=== PATIENT | female | born 1960 | race Caucasian/White ===

== ENCOUNTER 2020-04-02 09:22 | Day surgery (SDC) | payer BC, OTHER ==
[~2020-04-02 09:22] MED LIST: Acetaminophen 325 MG Tab PO SCH; EPINEPHrine 1 MG/ML SDV ONE; Lactated Ringers 1,000 ML IV SCH; Lidocaine 1%/Sod Bicarbonate in NS 8.4% 1 ML Syringe IDERM PRN; Morphine 8 MG, EPINEPHrine 0.3 MG, Cefuroxime 750 MG, Ketorolac 30 MG, Sodium Chloride ... PRN; Pregabalin 25 MG Cap PO SCH; Ropivacaine 0.5% 5 MG/ML 30 ML SDV ONE; Scopolamine 1.5 MG Transdermal Patch TRDERM PRN; Sodium Chloride 0.9% 10 ML Syringe FLUSH PRN; oxyCODONE ER 10 MG TAB.ER PO SCH
[2020-04-02] MEDS ORDERED: Propofol 200 MG/20 ML SDV ONE (10:05)
[2020-04-02] MEDS ORDERED: Midazolam 1 MG/ML 2 ML SDV ONE (10:05)
[2020-04-02] MEDS ORDERED: fentaNYL 100 MCG/2 ML SDV ONE (10:05)
[2020-04-02] MEDS ORDERED: ceFAZolin 1 GM Vial ONE ×3 (10:08→15:00)
[2020-04-02] MEDS ORDERED: Vancomycin 1 GM SDV ONE (10:10)
[2020-04-02] MEDS ORDERED: Bupivacaine 0.25% 10 ML SDV ONE (10:11)
--- NOTE | 2020-04-02 10:26 | PCM.PREANE ---
Preanesthetic Assessment - Procedure Proposed Procedure: left total knee - Anesthesia/Transfusion/Family Hx Type of Anesthesia Reaction: Excessive Nausea/Vomiting Family History of Anesthesia Reaction: No Transfusion History: No Prior Transfusion(s) - Review of Systems General: No Symptoms Pulmonary: No Symptoms Cardiovascular: No Symptoms Gastrointestinal: No Symptoms Neurological: No Symptoms Other: Reports: Diabetes (pre), Thyroid Problems, Sinus Problem - Physical Assessment NPO Status Date: 04/01/20 NPO Status Time: 23:00 Vital Signs: Last Vital Signs Temp 97.3 F 04/02/20 09:15 Pulse 62 04/02/20 09:15 Resp 16 04/02/20 09:15 BP 158/76 H 04/02/20 09:15 Pulse Ox 96 04/02/20 09:15 Height: 5 ft 5 in Weight: 92.533 kg ASA Class: 2 Mental Status: Alert & Oriented x3 Airway Class: Mallampati = 1 Dentition: Reports: Normal Dentition Thyro-Mental Finger Breadths: 3 Mouth Opening Finger Breadths: 3 ROM/Head Extension: Full Lungs: Clear to Auscultation, Normal Respiratory Effort Cardiovascular: Regular Rate, Regular Rhythm - Lab Values: Laboratory Last Values PT 10.9 SECONDS (9.7-11.7) 04/02/20 09:40 INR 1.02 04/02/20 09:40 APTT 27 SECONDS (22-31) 04/02/20 09:40 POC Glucose 92 mg/dL (70-105) 04/02/20 09:39 SARS-CoV-2 (PCR) Not detected (NOT DETECT) 03/29/20 10:30 MRSA (PCR) Negative 03/20/20 10:29 - Allergies Allergies/Adverse Reactions: Allergies Allergy/AdvReac Type Severity Reaction Status Date / Time No Known Allergies Allergy Verified 04/02/20 09:36 - Blood Blood Available: No - Acknowledgements Anesthesia Type Planned: Spinal Pt an Appropriate Candidate for the Planned Anesthesia: Yes Alternatives and Risks of Anesthesia Discussed w Pt/Guardian: Yes Pt/Guardian Understands and Agrees with Anesthesia Plan: Yes PreAnesthesia Questionnaire Cardiovascular History: Reports: High Cholesterol Respiratory History: Reports: None Gastrointestinal History: Reports: None Musculoskeletal History: Reports: Arthritis Psychiatric History: Reports: None Endocrine/Metabolic History: Reports: Hypothyroidism, Other (See Below) Other Endocrine/Metabolic History: abnormal BG, now on metformin - Past Surgical History GI Surgical History: Reports: Colonoscopy Female Surgical History: Reports: Breast Implant, Section, Hysterectomy - SUBSTANCE USE Smoking Status *Q: Never Smoker Tobacco Use Within Last Twelve Months: No Second Hand Smoke Exposure: No Days Per Week of Alcohol Use: 1 (rare) Recreational Drug Use History: No - HOME MEDS Home Medications: Home Meds Biotin 1 tab PO DAILY 03/30/20 [History] Cartilage/Collagen/Bor/Hyalur [Joint Health Tablet] 1 tab PO DAILY 03/30/20 [History] Cholecalciferol (Vitamin D3) [Vitamin D3] 125 mcg PO DAILY 03/30/20 [History] Fish Oil/Borage/Flax/Om3,6,9 1 [[place] 3-6-9 1,200 mg Softgel] 1 cap PO DAILY 03/30/20 [History] L.acidoph,Paracasei, B.lactis [Probiotic] 1 cap PO DAILY 03/30/20 [History] Levothyroxine 125 mcg PO DAILY 03/30/20 [History] Lysine 500 mg PO DAILY 03/30/20 [History] metFORMIN [Glucophage XR] 500 mg PO DAILY 03/30/20 [History] Acetaminophen/oxyCODONE [Percocet 325-5 MG] 1 - 2 each PO Q4H PRN #60 tab 04/02/20 [Rx] Aspirin [Aspirin EC] 325 mg PO BID #84 04/02/20 [Rx] Cyclobenzaprine [Flexeril] 10 mg PO BID PRN #20 tab 04/02/20 [Rx] - CURRENT (IN HOUSE) MEDS Current Meds: Current Medications Acetaminophen (Tylenol) 975 mg PO ONETIME MALISSA Stop: 04/02/20 16:00 Last Admin: 04/02/20 09:32 Dose: 975 mg Documented by: Morphine Sulfate 8 mg/Epinephrine HCl 0.3 mg/Cefuroxime Sodium 750 mg/Ketorolac Tromethamine 30 mg/Sodium Chloride 7.9 ml 0 mg .XX ASDIRECTED PRN PRN Reason: Pain Stop: 04/02/20 13:00 Lactated Ringer's (Ringers, Lactated) 1,000 mls @ 125 mls/hr IV ASDIRECTED MALISSA Stop: 04/02/20 23:00 Last Admin: 04/02/20 09:35 Dose: 125 mls/hr Documented by: Lidocaine/Sodium Bicarbonate (Buffered Lidocaine 1% In Ns 8.4%) 0.25 ml IDERM ONETIME PRN PRN Reason: Prior to IV Start Stop: 04/02/20 18:00 Last Admin: 04/02/20 09:34 Dose: 0.25 ml Documented by: Oxycodone HCl (Oxycontin) 10 mg PO ONETIME MALISSA Stop: 04/02/20 16:00 Last Admin: 04/02/20 09:32 Dose: 10 mg Documented by: Pregabalin (Lyrica) 50 mg PO ONETIME MALISSA Stop: 04/02/20 16:00 Last Admin: 04/02/20 09:32 Dose: 50 mg Documented by: Scopolamine (Transderm-Scop) 1.5 mg TRDERM ONETIME PRN PRN Reason: PONV Stop: 04/02/20 16:00 Last Admin: 04/02/20 09:33 Dose: 1.5 mg Documented by: Sodium Chloride (Saline Flush) 10 ml FLUSH ASDIRECTED PRN PRN Reason: Keep Vein Open Stop: 04/02/20 18:00 Discontinued Medications Bupivacaine HCl (Sensorcaine-Mpf 0.25%) Confirm Administered Dose 30 ml .ROUTE .STK-MED ONE Stop: 04/02/20 10:12 Cefazolin Sodium (Ancef) Confirm Administered Dose 2 gm .ROUTE .STK-MED ONE Stop: 04/02/20 10:09 Cefazolin Sodium (Ancef) Confirm Administered Dose 1 gm .ROUTE .STK-MED ONE Stop: 04/02/20 10:12 Epinephrine HCl (Adrenalin) Confirm Administered Dose 1 mg .ROUTE .STK-MED ONE Stop: 04/02/20 07:02 Fentanyl (Sublimaze) Confirm Administered Dose 100 mcg .ROUTE .STK-MED ONE Stop: 04/02/20 10:06 Midazolam HCl (Versed 1 Mg/Ml) Confirm Administered Dose 2 mg .ROUTE .STK-MED ONE Stop: 04/02/20 10:06 Propofol (Diprivan 20 Ml) Confirm Administered Dose 400 mg .ROUTE .STK-MED ONE Stop: 04/02/20 10:06 Ropivacaine (Naropin 0.5%) Confirm Administered Dose 30 ml .ROUTE .STK-MED ONE Stop: 04/02/20 07:02 Tranexamic Acid (Cyklokapron) Confirm Administered Dose 1,000 mg .ROUTE .STK-MED ONE Stop: 04/02/20 10:11 Vancomycin HCl (Vancomycin) Confirm Administered Dose 1 gm .ROUTE .STK-MED ONE Stop: 04/02/20 10:11
[2020-04-02] MEDS ORDERED: Lactated Ringers 1,000 ML ONE (11:11)
[2020-04-02] MEDS ORDERED: Ondansetron 4 MG/2 ML SDV IVPUSH PRN (11:30)
[2020-04-02] MEDS ORDERED: HYDROmorphone 0.5 MG/0.5 ML Syringe IVPUSH PRN (11:30)
[2020-04-02] MEDS ORDERED: fentaNYL 100 MCG/2 ML SDV IVPUSH PRN (11:30)
[2020-04-02] MEDS ORDERED: ePHEDrine Sulfate/0.9% NaCl/Pf 25 MG/5 ML SYRINGE IV ONE (12:09)
[2020-04-02] MEDS ORDERED: Ondansetron 4 MG/2 ML SDV ONE (12:17)
[2020-04-02] MEDS ORDERED: Ketorolac 30 MG/ML SDV ONE (12:24)
--- NOTE | 2020-04-02 12:43 | PCM.POSTAN ---
POST ANESTHESIA ASSESSMENT - MENTAL STATUS Mental Status: Alert, Oriented - VITAL SIGNS Vital Signs: Last Vital Signs Temp 97.3 F 04/02/20 09:15 Pulse 62 04/02/20 09:15 Resp 16 04/02/20 09:15 BP 158/76 H 04/02/20 09:15 Pulse Ox 96 04/02/20 09:15 1235 103/55 96% 72 14 97.6f - RESPIRATORY Respiratory Status: Respiratory Rate WNL, Airway Patent, O2 Saturation Stable, Supplemental Oxygen - CARDIOVASCULAR CV Status: Pulse Rate WNL, Blood Pressure Stable - GASTROINTESTINAL GI Status: No Symptoms - PAIN Pain Score: 0 - POST OP HYDRATION Hydration Status: Adequate & Stable
--- NOTE | 2020-04-02 13:07 | PCM.SN.2 ---
- Free Text/Narrative Note: Left selective femoral nerve block at the adductor canal for post-procedure pain control under US guidance requested by Dr. Bliss. Date: 04/02/20 Time Out: 1249 Start: 1249 End: 1255 Chart reviewed. Consent signed. Questions answered. Appropriate monitors applied. Time out performed. Left mid-shaft femur identified with ultrasound, scanning medially of femur, the femoral artery in the adductor canal visualized, and the femoral nerve located laterally to the artery. The skin was prepped lateral to the ultrasound probe with chlorahexadine times two. The 21ga 4 insulated block needle was inserted under direct ultrasound guidance into the adductor canal. 25mL of 0.5% ropivacaine with 1:200,000 epinephrine was injected circumferentially around the nerve with intermittent negative aspiration noted. Patient tolerated the procedure well. Sterile technique noted along with sterile gloves, mask, and sterile probe cover. See picture on progress note and vital signs on nurses notes. Block completed in PACU. States felt heart beat in chest after. Heart rate 45. Subsided after a few minutes. BP 175/70. States feels better. - Laurel Dhillon CRNA
--- NOTE | 2020-04-02 16:07 | PCM48HPAN ---
Post Anesthesia Note - EVALUATION WITHIN 48HRS OF ANESTHETIC Vital Signs in Normal Range: Yes Patient Participated in Evaluation: Yes Respiratory Function Stable: Yes Airway Patent: Yes Cardiovascular Function Stable: Yes Hydration Status Stable: Yes Pain Control Satisfactory: Yes Nausea and Vomiting Control Satisfactory: Yes Mental Status Recovered: Yes Vital Signs: Last Vital Signs Temp 36.3 C 04/02/20 14:36 Pulse 66 04/02/20 14:36 Resp 20 04/02/20 14:36 BP 119/64 04/02/20 14:36 Pulse Ox 94 L 04/02/20 14:36
--- NOTE | 2020-04-09 15:57 | PCM.OPNOTE ---
- General Post-Op/Procedure Note Date of Surgery/Procedure: 04/02/20 Operative Procedure(s): left total knee arthroplasty Pre Op Diagnosis: left knee osteoarthrosis Post-Op Diagnosis: Same Anesthesia Technique: Local, MAC, Spinal Primary Surgeon: Bernabe Bliss Anesthesia Provider: Laurel Dhillon Vessel Specialist: Mariluz Castanon Vessel Specialist: Audelia Contreras in mLs: 50 Complications: None Condition: Good Free Text/Narrative:: 4/4 9mm 32x10
--- NOTE | 2020-04-09 16:16 | OR ---
DATE OF OPERATION: 04/02/2020 SURGEON: Bernabe Bliss MD OPERATION PERFORMED: Left total knee arthroplasty. PREOPERATIVE DIAGNOSIS: Left knee osteoarthrosis. POSTOPERATIVE DIAGNOSIS: Left knee osteoarthrosis. ANESTHESIA: Local MAC with spinal. ANESTHESIA PROVIDER: Laurel Dhillon. ASH PIT WORKER: Mariluz Castanon PA-C and Audelia Contreras. CASHIER RECEPTIONIST. ESTIMATED BLOOD LOSS: 50 mL. COMPLICATIONS: None. CONDITION: Stable. IMPLANTS: 1. [place] size 4 press-fit CR femur. 2. [place] size 4 press-fit tibial base plate. 3. [place] size 4, 9 mm CS polyethylene insert. 4. [place] size 32 x 10 mm press fit asymmetric patella. DESCRIPTION OF PROCEDURE: The patient was identified in the preop holding area. Proper site was marked and identified by the surgeon. The patient was taken back to the operating theater. After adequate anesthesia, the patient's left lower extremity had a nonsterile tourniquet applied and it was sterilely prepped and draped in the usual sterile fashion. OR time-out was performed. The patient received 2 g IV Ancef. At this time, the left lower extremity was exsanguinated. Tourniquet was insufflated to 300 mmHg. Standard medial parapatellar incision was made. Medial parapatellar arthrotomy was created. Deep fibers of the MCL were raised and anterior fat pad was resected. At this time, attention was turned to the patella. Patella measured a 24, it was resected to a 14 for a 32 x 10 mm patella. Drill holes were then drilled and found to be in adequate position. The drill was then drilled in the distal femur and the intramedullary distal femoral cutting guide was then placed. 8 mm was resected off the distal femur and was found to be an adequate resection. Sizing guide was placed. It was found to be a size 4 press-fit CR femur that was shown on the implant record at the beginning of this dictation. The drill holes were drilled for the epicondylar axis using [place] line and epicondyles as reference. At this time, the 4-in-1 cutting block was placed. An anterior posterior and anterior and posterior chamfer cuts were then completed. Attention was turned to the tibia. The posterior medial lateral retractors were placed. The extramedullary tibial guide was placed. It was placed in the old footprint of the ACL. It was aligned with the center of the ankle and 0 degrees of slope, 9 mm was then resected off the unaffected side. There was found to be an acceptable reduction. At this time, posterior osteophytes were removed along with medial and lateral meniscus. A trial implant was placed with a correct sized tibia that was mentioned at the beginning of the dictation. A [place] size 4, 9 mm CS polyethylene insert was then placed. The patient's knee was brought through range of motion. The patella was tracking centrally and was stable to varus and valgus stress. Alignment was found to be roughly at 0 degrees. The tibia was stamped and drilled in proper rotation. The universal tibial base plate was impacted in place. Next, the [place] size 4 press-fit CR femur impacted into place and the [place] size 4, 9 mm CS polyethylene insert was placed. The patient's knee was brought into full extension. The patella was then press-fit in place at this time. Tourniquet was deflated. Irricept was irrigated through the knee along with 1 L of pulse lavage irrigation with Ancef. Periarticular injection was then completed. The patient's knee was brought through a range of motion. Knee was found to be stable to varus valgus stress, the patella was tracking centrally with full range of motion. At this time, a #2 barbed suture was used for closure of the medial parapatellar arthrotomy. Topical tranexamic acid was placed. 2-0 Vicryl was used subcutaneously, Prineo was used for the skin. The patient tolerated the procedure well and was sent to the PACU in stable condition. MMODAL /[id number] MTDD
== END 2020-04-02 18:25 | disposition home or self-care (01) ==
LOC: JD.SDS 09:22
PROVIDERS: ATTEND Orthopaedic Surgery
DX: M17.12 Unilateral primary osteoarthritis, left knee (principal); E03.9 Hypothyroidism, unspecified; E78.2 Mixed hyperlipidemia; E11.9 Type 2 diabetes mellitus without complications; R94.5 Abnormal results of liver function studies; G89.18 Other acute postprocedural pain; Z01.812 Encounter for preprocedural laboratory examination; Z79.899 Other long term (current) drug therapy; Z79.890 Hormone replacement therapy; Z88.0 Allergy status to penicillin; Z98.890 Other specified postprocedural states; Z80.0 Family history of malignant neoplasm of digestive organs; Z23 Encounter for immunization; Z79.4 Long term (current) use of insulin; Z20.828 Contact with and (suspected) exposure to other viral communicable diseases
CPT/HCPCS: 27447; 36415; 73560; 82962; 85610; 85730; 87635; 87641; 97110; 97116; 97161; A9270; C1776; J0171; J0690; J0697; J1885; J2250; J2270; J2405; J2704; J2795; J3010; J3370; J3490; J7120; 01402; 64450; U0002

== ENCOUNTER 2020-05-31 06:11 | Day surgery (SDC) | payer OTHER ==
[~2020-05-31 06:11] MED LIST changes: -Acetaminophen 325 MG Tab PO SCH; -EPINEPHrine 1 MG/ML SDV ONE; -Morphine 8 MG, EPINEPHrine 0.3 MG, Cefuroxime 750 MG, Ketorolac 30 MG, Sodium Chloride ... PRN; -Pregabalin 25 MG Cap PO SCH; -Ropivacaine 0.5% 5 MG/ML 30 ML SDV ONE; -Scopolamine 1.5 MG Transdermal Patch TRDERM PRN; -oxyCODONE ER 10 MG TAB.ER PO SCH
--- NOTE | 2020-05-31 06:36 | PCM.PREANE ---
Preanesthetic Assessment - Procedure Proposed Procedure: left knee manipulation under anesthesia - Anesthesia/Transfusion/Family Hx Anesthesia History: Prior Anesthesia Reaction Type of Anesthesia Reaction: Excessive Nausea/Vomiting Family History of Anesthesia Reaction: No Transfusion History: No Prior Transfusion(s) - Review of Systems General: No Symptoms Pulmonary: No Symptoms Cardiovascular: No Symptoms Gastrointestinal: No Symptoms Neurological: No Symptoms Other: Reports: Diabetes (pre), Thyroid Problems - Physical Assessment NPO Status Date: 05/30/20 NPO Status Time: 22:00 Vital Signs: 147/81 75 97% 16 97.6 Height: 5 ft 5 in Weight: 89.5 kg ASA Class: 2 Mental Status: Alert & Oriented x3 Airway Class: Mallampati = 1 Dentition: Reports: Normal Dentition Thyro-Mental Finger Breadths: 3 Mouth Opening Finger Breadths: 3 ROM/Head Extension: Full Lungs: Clear to Auscultation, Normal Respiratory Effort Cardiovascular: Regular Rate, Regular Rhythm - Allergies Allergies/Adverse Reactions: Allergies Allergy/AdvReac Type Severity Reaction Status Date / Time Penicillins Allergy family Verified 05/30/20 14:47 allergy - Blood Blood Available: No - Acknowledgements Anesthesia Type Planned: MAC Pt an Appropriate Candidate for the Planned Anesthesia: Yes Alternatives and Risks of Anesthesia Discussed w Pt/Guardian: Yes Pt/Guardian Understands and Agrees with Anesthesia Plan: Yes PreAnesthesia Questionnaire HEENT History: Reports: None Cardiovascular History: Reports: High Cholesterol Respiratory History: Reports: None Gastrointestinal History: Reports: Diverticulosis Genitourinary History: Reports: None HOUSETRAILER SERVICER History: Reports: None Musculoskeletal History: Reports: Arthritis Neurological History: Reports: None Psychiatric History: Reports: None Endocrine/Metabolic History: Reports: Hypothyroidism, Obesity/BMI 30+, Other (See Below) Other Endocrine/Metabolic History: abnormal BG, now on metformin Hematologic History: Reports: None Immunologic History: Reports: None Oncologic (Cancer) History: Reports: None Other Dermatologic History: seborrheic keratosis - Infectious Disease History Infectious Disease History: Reports: None - Past Surgical History Head Surgeries/Procedures: Reports: None HEENT Surgical History: Reports: None Cardiovascular Surgical History: Reports: None Respiratory Surgical History: Reports: None GI Surgical History: Reports: Colonoscopy Female Surgical History: Reports: Breast Implant, Section, Hysterectomy Male Surgical History: Reports: None Endocrine Surgical History: Reports: None Neurological Surgical History: Reports: None Musculoskeletal Surgical History: Reports: Knee Replacement Oncologic Surgical History: Reports: None - SUBSTANCE USE Tobacco Use Status *Q: Never Tobacco User Tobacco Use Within Last Twelve Months: No Second Hand Smoke Exposure: No Days Per Week of Alcohol Use: 1 Number of Drinks Per Day: 1 Total Drinks Per Week: 1 Recreational Drug Use History: No - HOME MEDS Home Medications: Home Meds Biotin 1 tab PO DAILY 03/30/20 [History] Cartilage/Collagen/Bor/Hyalur [Joint Health Tablet] 1 tab PO DAILY 03/30/20 [History] Cholecalciferol (Vitamin D3) [Vitamin D3] 125 mcg PO DAILY 03/30/20 [History] Fish Oil/Borage/Flax/Om3,6,9 1 [[place] 3-6-9 1,200 mg Softgel] 1 cap PO DAILY 03/30/20 [History] L.acidoph,Paracasei, B.lactis [Probiotic] 1 cap PO DAILY 03/30/20 [History] Levothyroxine 125 mcg PO DAILY 03/30/20 [History] Lysine 500 mg PO DAILY 03/30/20 [History] metFORMIN [Glucophage XR] 500 mg PO DAILY 03/30/20 [History] Acetaminophen [Tylenol] 650 mg PO Q4H PRN 05/30/20 [History] Celecoxib 200 mg PO DAILY 05/30/20 [History] Metaxalone [Skelaxin] 800 mg PO BEDTIME 05/30/20 [History] Cyclobenzaprine [Flexeril] 10 mg PO BID PRN #20 tab 05/31/20 [Rx] oxyCODONE 5 - 10 mg PO Q4H PRN #30 tab 05/31/20 [Rx] - CURRENT (IN HOUSE) MEDS Current Meds: Current Medications Lactated Ringer's (Ringers, Lactated) 1,000 mls @ 125 mls/hr IV ASDIRECTED MALISSA Stop: 05/31/20 23:00 Lidocaine/Sodium Bicarbonate (Buffered Lidocaine 1% In Ns 8.4%) 0.25 ml IDERM ONETIME PRN PRN Reason: Prior to IV Start Stop: 05/31/20 18:00 Sodium Chloride (Saline Flush) 10 ml FLUSH ASDIRECTED PRN PRN Reason: Keep Vein Open Stop: 05/31/20 18:00
[2020-05-31] MEDS ORDERED: Lidocaine 1% 4 ML ONE (06:38)
[2020-05-31] MEDS ORDERED: Propofol 200 MG/20 ML SDV ONE (06:39)
[2020-05-31] MEDS ORDERED: Ketorolac 30 MG/ML SDV ONE (06:39)
[2020-05-31] MEDS ORDERED: Midazolam 1 MG/ML 2 ML SDV ONE (06:39)
[2020-05-31] MEDS ORDERED: Ondansetron 4 MG/2 ML SDV ONE (06:39)
[2020-05-31] MEDS ORDERED: Ketamine 500 mg/10 ML MDV ONE (06:39)
[2020-05-31] MEDS ORDERED: fentaNYL 100 MCG/2 ML SDV ONE (06:39)
--- NOTE | 2020-05-31 07:59 | PCM48HPAN ---
Post Anesthesia Note - EVALUATION WITHIN 48HRS OF ANESTHETIC Vital Signs in Normal Range: Yes Patient Participated in Evaluation: Yes Respiratory Function Stable: Yes Airway Patent: Yes Cardiovascular Function Stable: Yes Hydration Status Stable: Yes Pain Control Satisfactory: Yes (denies pain) Nausea and Vomiting Control Satisfactory: Yes Mental Status Recovered: Yes Vital Signs: Last Vital Signs Temp 97.6 F 05/31/20 06:20 Pulse 75 05/31/20 06:20 Resp 16 05/31/20 06:20 BP 147/81 H 05/31/20 06:20 Pulse Ox 97 05/31/20 06:20 0754 121/62 62 98.3 93% 16
[2020-05-31] MEDS ORDERED: Ondansetron 4 MG/2 ML SDV IVPUSH PRN (08:00)
--- NOTE | 2020-06-06 14:00 | PCM.OPNOTE ---
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
--- NOTE | 2020-06-13 16:03 | OR ---
DATE OF OPERATION: 05/31/2020 SURGEON: Bernabe Bliss MD OPERATION PERFORMED: Manipulation under anesthesia of left total knee arthroplasty. PREOPERATIVE DIAGNOSIS: Left total knee arthrofibrosis. POSTOPERATIVE DIAGNOSIS: Left total knee arthrofibrosis. ANESTHESIA: MAC. ANESTHESIA PROVIDER: Laurel Dhillon CRNA. AREA OPERATIONS MANAGER: Mariluz Castanon PA-C. ESTIMATED BLOOD LOSS: Not applicable. COMPLICATIONS: None. CONDITION: Stable. DESCRIPTION OF PROCEDURE: The patient was identified in the preoperative holding area. Proper site was marked and identified by the surgeon. The patient was taken back to the operative theater, where after adequate time-out pre manipulation motion was measured. The patient had full extension and roughly 85 degrees of flexion. At this time, we did a manipulation under anesthesia, and the patient had complete advent of motion compared to the non-operative side. A picture was taken showing the complete motion compared to the non- operative side. The patient was sent to PACU in stable condition. We will begin physical therapy. MMODAL /[id number]
== END 2020-05-31 08:35 | disposition home or self-care (01) ==
LOC: JD.SDS 06:11
PROVIDERS: ATTEND Orthopaedic Surgery
DX: T84.82XA Fibrosis due to internal orthopedic prosthetic devices, implants and grafts, initial encounter (principal); E11.9 Type 2 diabetes mellitus without complications; E78.2 Mixed hyperlipidemia; E03.9 Hypothyroidism, unspecified; E66.9 Obesity, unspecified; Z98.890 Other specified postprocedural states; Z96.652 Presence of left artificial knee joint; Z79.890 Hormone replacement therapy; Z68.32 Body mass index [BMI] 32.0-32.9, adult; Z88.0 Allergy status to penicillin; Z79.82 Long term (current) use of aspirin; Z79.899 Other long term (current) drug therapy; Z79.84 Long term (current) use of oral hypoglycemic drugs
CPT/HCPCS: 27570; J1885; J2001; J2250; J2405; J2704; J3010; J7120; 01390

== ENCOUNTER 2024-10-24 06:30 | Day surgery (SDC) | payer MEDICARE, OTHER ==
[2024-10-24] MEDS: Pregabalin 25 MG Cap PO ONE (07:00)
[2024-10-24] MEDS: oxyCODONE ER 10 MG TAB.ER PO ONE (07:00)
[2024-10-24] MEDS: Acetaminophen 325 MG Tab PO ONE (07:00)
[2024-10-24] MEDS ORDERED: propofoL 500 MG/50 ML 50 ML ONE ×2 (07:27→08:32)
[2024-10-24] MEDS ORDERED: Midazolam 1 MG/ML 2 ML SDV ONE (07:47)
[2024-10-24] MEDS ORDERED: HYDROmorphone 0.5 MG/0.5 ML Syringe IVPUSH ONE (08:15)
[2024-10-24] MEDS ORDERED: fentaNYL 100 MCG/2 ML SDV IVPUSH PRN (08:15)
[2024-10-24] MEDS ORDERED: Ondansetron 4 MG/2 ML SDV IVPUSH ONE (08:15)
[2024-10-24] MEDS ORDERED: Phenylephrine 1% 10 MG/ML SDV ONE (08:18)
[2024-10-24] MEDS ORDERED: Ondansetron 4 MG/2 ML SDV ONE ×2 (08:32→13:44)
[2024-10-24] MEDS: Morphine 8 MG, EPINEPHrine 0.3 MG, Cefuroxime 750 MG, Ketorolac 30 MG, Sodium Chloride ... PRN (08:55)
[2024-10-24] MEDS: VANCOmycin 1 GM SDV ONE (09:02)
[2024-10-24] MEDS: Tranexamic Acid 1,000 MG/10 ML Vial ONE (09:02)
[2024-10-24] MEDS ORDERED: Ropivacaine 0.5% 5 MG/ML 30 ML SDV ONE (09:29)
[2024-10-24] MEDS ORDERED: ceFAZolin 2 GM Vial ONE (10:06)
[2024-10-24] MEDS ORDERED: Dexamethasone 4 MG/ML 5 ML MDV ONE (10:07)
[2024-10-24] MEDS ORDERED: oxyCODONE 5 MG Tab PO PRN (10:45)
[2024-10-24] MEDS: Ondansetron 4 MG/2 ML SDV IVPUSH ONE (13:45)
== END 2024-10-24 15:45 | disposition home or self-care (01) ==
LOC: JD.SDS 06:30
PROVIDERS: ATTEND Orthopaedic Surgery
DX: M17.11 Unilateral primary osteoarthritis, right knee (principal); E11.9 Type 2 diabetes mellitus without complications; E03.9 Hypothyroidism, unspecified; E78.2 Mixed hyperlipidemia; Z88.0 Allergy status to penicillin; Z79.82 Long term (current) use of aspirin; Z79.84 Long term (current) use of oral hypoglycemic drugs; Z79.899 Other long term (current) drug therapy; Z79.890 Hormone replacement therapy
CPT/HCPCS: 0055T; 27447; 73560; 97110; 97116; 97161; A9270; C1713; C1776; J0171; J0690; J0697; J1100; J1885; J2250; J2272; J2371; J2405; J2704; J2795; 01402; 64447; J3490